=== PATIENT | female | born 1990 | race African-American/Black ===

== ENCOUNTER 2021-04-16 09:41 | Observation (INO) ==
[2021-04-16] MEDS ORDERED: ONDANSETRON 4 MG/2 ML VIAL IV STA (10:13)
[2021-04-16] MEDS ORDERED: SODIUM CHLORIDE 0.9% 1,000 ML IV STA (10:13)
[2021-04-16] MEDS ORDERED: HYDROmorphone 2 MG/1 ML VIAL IV STA (10:13)
[2021-04-16] MEDS ORDERED: hydrALAZINE 20 MG/1 ML VIAL IV STA (10:16)
[2021-04-16 10:21] LABS: Basophils % 0.3 % (0.0-0.8); Eosinophils % 0.1 % (0.00-10.9); Hemoglobin 14.2 GM/DL (12.0-16.0); Immature Granulocytes % 0.4 %; Immature Granulocytes Absolute 0.05 #; Lymphocytes # 2.4 10*3/uL (1.4-4.0); Lymphocytes % 20.4 % (21.3-54.2); Mean Corpuscular HGB Conc 36.4 GM/DL (32-36); Mean Corpuscular Volume 81.8 FL (87-102); Mean Platelet Volume 10.1 FL (9.6-12.0); Monocytes % 5.2 % (1.7-12.7); Neutrophils % 73.6 % (38.7-73.9); Platelet Count 333 T/CUMM (130-400); Red Blood Count 4.77 MC/CUMM (3.8-5.5); Red Cell Distribution Width 14.5 % (9.3-17.3); White Blood Count 11.6 T/CUMM (4-12)
[2021-04-16 10:37] LABS: Bilirubin,Urine Negative (Negative); Blood, Urine Small mg/dL (Negative); Glucose,Urine (UA) 50 mg/dL (Negative); Hyaline Casts,Urine 4 /LPF (0-3); Ketones,Urine 20 mg/dL (Negative); Mucus,Urine Occasional /LPF (Occasional); Nitrite,Urine Negative (Negative); Protein,Urine 100 MG/DL; RBC,Urine 3 /HPF (0-4); Squamous Epithelial Cell,Urine Occasional /HPF (0-10); Urine Appearance Slightly Hazy (Clear); Urine Color Yellow (Yellow); Urine Specific Gravity 1.016 (1.001-1.035); Urine Urobilinogen < 2.0 EU/DL (0.2-1.0)
[2021-04-16 10:39] LABS: Albumin 3.5 G/DL (3.4-5.0); Bilirubin,Total 0.7 MG/DL (0.2-1.0); Calcium 9.7 MG/DL (8.5-10.1); Osmolality,Calculated 289.2 MOS/KG (273-304); Potassium 3.7 MMOL/L (3.5-5.1); Total Protein 8.3 G/DL (6.4-8.2)
[2021-04-16] MEDS ORDERED: PROMETHAZINE 25 MG/1 ML VIAL IM STA (11:07)
[2021-04-16] MEDS ORDERED: LORazepam 2 MG/1 ML VIAL IV STA (11:07)
[2021-04-16] MEDS ORDERED: PROMETHAZINE 25 MG/1 ML VIAL ONE (11:08)
[2021-04-16] MEDS ORDERED: LORazepam 2 MG/1 ML VIAL ONE (11:10)
[2021-04-16] MEDS ORDERED: GLUCAGON 1 MG VIAL IM PRN (12:05)
[2021-04-16] MEDS ORDERED: hydrALAZINE 20 MG/1 ML VIAL IV PRN (12:05)
[2021-04-16] MEDS ORDERED: PROMETHAZINE 25 MG/1 ML VIAL IM PRN (12:05)
[2021-04-16] MEDS ORDERED: ACETAMINOPHEN 325 MG TABLET PO PRN (12:05)
[2021-04-16] MEDS ORDERED: NICOTINE 21 MG/24 HR PATCH TRANSDERM PRN (12:05)
[2021-04-16] MEDS ORDERED: DEXTROSE 50% 25 GM/50 ML VIAL IV PRN (12:05)
[2021-04-16] MEDS ORDERED: MORPHINE 4 MG/1 ML VIAL IV PRN (12:05)
[2021-04-16] MEDS: SODIUM CHLORIDE 0.9% 1,000 ML IV SCH (12:30)
[2021-04-16] MEDS: PANTOPRAZOLE 40 MG VIAL IV SCH (13:39)
[2021-04-16 13:44] LABS: ABG Base Excess 0.1 MMOL/L (-2.5-2.5); ABG HCO3 24.5 MMOL/L (20-26); ABG Oxygen Saturation 94.9 % (95-100); ABG PCO2 41.4 MM HG (35-48); ABG PH 7.391 (7.35-7.45); ABG PO2 79.1 MM HG (80-95); ABG TCO2 21.9 MMOL/L (23-27); Allen Test Positive
[2021-04-16] MEDS: INSULIN LISPRO 100 UNIT/ML SUBCUT SCH ×2 (18:08→20:38)
[2021-04-17] MEDS: ONDANSETRON 4 MG/2 ML VIAL IV PRN ×5 (00:57→18:02)
[2021-04-17] MEDS: SODIUM CHLORIDE 0.9% 1,000 ML IV SCH ×4 (05:05→21:54)
[2021-04-17 06:53] LABS: Basophils % 0.4 % (0.0-0.8); Eosinophils % 0.2 % (0.00-10.9); Hematocrit 34.4 VOL% (35.7-47.0); Hemoglobin 12.6 GM/DL (12.0-16.0); Immature Granulocytes % 0.4 %; Immature Granulocytes Absolute 0.04 #; Lymphocytes # 1.8 10*3/uL (1.4-4.0); Lymphocytes % 17.1 % (21.3-54.2); Mean Corpuscular HGB Conc 36.6 GM/DL (32-36); Mean Corpuscular Volume 83.3 FL (87-102); Mean Platelet Volume 10.6 FL (9.6-12.0); Monocytes % 5.7 % (1.7-12.7); Neutrophils % 76.2 % (38.7-73.9); Platelet Count 273 T/CUMM (130-400); Red Blood Count 4.13 MC/CUMM (3.8-5.5); Red Cell Distribution Width 14.4 % (9.3-17.3); White Blood Count 10.6 T/CUMM (4-12)
[2021-04-17 07:03] LABS: Calcium 8.5 MG/DL (8.5-10.1); Osmolality,Calculated 290.5 MOS/KG (273-304); Potassium 3.3 MMOL/L (3.5-5.1)
[2021-04-17] MEDS ORDERED: POTASSIUM CHLORIDE 20 MEQ TABLET PO ONE (07:45)
[2021-04-17] MEDS: LOSARTAN 25 MG TABLET PO SCH (09:01)
[2021-04-17] MEDS: PANTOPRAZOLE 40 MG VIAL IV SCH (09:04)
[2021-04-17] MEDS: INSULIN LISPRO 100 UNIT/ML SUBCUT SCH ×4 (09:04→21:53)
[2021-04-17] MEDS: amLODIPine 5 MG TABLET PO SCH (09:08)
[2021-04-18] MEDS: SODIUM CHLORIDE 0.9% 1,000 ML IV SCH ×2 (04:19→11:59)
[2021-04-18 06:03] LABS: Basophils # 0.1 10*3/uL (0.0-0.2); Basophils % 0.7 % (0.0-0.8); Eosinophils # 0.2 10*3/uL (0.0-0.87); Eosinophils % 2.7 % (0.00-10.9); Hemoglobin 10.8 GM/DL (12.0-16.0); Immature Granulocytes % 0.3 %; Immature Granulocytes Absolute 0.02 #; Mean Corpuscular HGB Conc 34.8 GM/DL (32-36); Mean Corpuscular Volume 86.4 FL (87-102); Mean Platelet Volume 10.1 FL (9.6-12.0); Monocytes % 9.6 % (1.7-12.7); Neutrophils % 45.7 % (38.7-73.9); Platelet Count 240 T/CUMM (130-400); Red Blood Count 3.59 MC/CUMM (3.8-5.5); Red Cell Distribution Width 14.5 % (9.3-17.3); White Blood Count 7.3 T/CUMM (4-12)
[2021-04-18 06:25] LABS: Calcium 8.3 MG/DL (8.5-10.1); Osmolality,Calculated 284.1 MOS/KG (273-304); Potassium 4.1 MMOL/L (3.5-5.1)
[2021-04-18 06:30] LABS: Eosinophils 4 % (0-10); Lymphocytes 35 % (20-55); Platelet Estimate Normal; Segmented Neutrophils 51 % (50-85); Total Cells Counted 100
[2021-04-18] MEDS: INSULIN LISPRO 100 UNIT/ML SUBCUT SCH ×2 (08:25→11:25)
[2021-04-18] MEDS: PANTOPRAZOLE 40 MG VIAL IV SCH (09:43)
[2021-04-18] MEDS: LOSARTAN 25 MG TABLET PO SCH (09:43)
[2021-04-18] MEDS: amLODIPine 5 MG TABLET PO SCH (09:43)
[2021-04-18 11:28] VITALS: BP 135/79
== END 2021-04-18 12:17 | disposition home or self-care (01) ==
LOC: N.EDINP 09:41 → N.ED 09:41 → SUATTDRO 12:05 → N.3E 15:45
PROVIDERS: ADMIT Internal Medicine; ATTEND Family Medicine